=== PATIENT | female | born 1955 | race Caucasian/White ===

== ENCOUNTER 2022-03-06 13:29 | Emergency (ER) | payer OTHER ==
[~2022-03-06] VITALS: Ht 167.6 cm; Wt 113.5 kg
[2022-03-06] MEDS ORDERED: AZITHROMYCIN 500MG/ 250ML 250 ML IV ONE (14:15)
[2022-03-06] MEDS ORDERED: methylPREDNISolone SOD SUCC 125 MG/2 ML VL IV ONE (14:15)
[2022-03-06] MEDS ORDERED: REMDESIVIR PER PHARMACY 0 ML IV SCH (14:45)
[2022-03-06 14:57] LABS: Basophils # (auto) 0 10 ^3/uL (0-0.2); Basophils % (auto) 0.5 % (0.0-2.0); Eosinophils # (auto) 0.1 10 ^3/uL (0-0.8); Eosinophils % (auto) 1.3 % (0.0-7.0); Hematocrit 53.6 % (36.0-46.0); Hemoglobin 17.7 g/dL (12.2-16.2); Lymphocytes # (auto) 1.1 10 ^3/uL (0.4-5.4); Lymphocytes % (auto) 17.8 % (10.0-50.0); Mean Corpuscular Hemoglobin 29.9 pg (28.0-32.0); Mean Corpuscular Volume 90.5 fL (80.0-100.0); Monocytes # (auto) 0.3 10 ^3/uL (0-1.3); Monocytes % (auto) 4.9 % (0.0-12.0); Neutrophils # (auto) 4.7 10 ^3/uL (1.6-8.6); Neutrophils % (auto) 75.5 % (37.0-80.0); Nucleated Red Blood Cells % 0.2 %; Red Blood Cells 5.92 10^6/uL (4.0-5.20); Red Cell Distribution Width 14.6 % (11.8-14.3); White Blood Cell 6.2 10^3/uL (4.4-10.8)
[2022-03-06 15:12] LABS: Albumin 3.4 g/dL (3.4-5.0); Calcium 8.7 mg/dL (8.5-10.1); Potassium 4.2 mmol/L (3.5-5.1)
[2022-03-06 15:21] LABS: BUN/Creatinine Ratio 19.1; Bilirubin, Total 0.5 mg/dL (0.2-1.0); CRP High Sensitivity 1.22 mg/dL (< 0.3); Total Protein 7.2 g/dL (6.4-8.2)
[2022-03-06] MEDS ORDERED: IPRATROPIUM BROM 0.5 MG/2.5ML INH SOL HHN ONE (15:45)
[2022-03-06] MEDS ORDERED: ALBUTEROL SULF 2.5 MG/0.5ML(0.5%) NEB SOLN HHN ONE (15:45)
[2022-03-06] MEDS ORDERED: REMDESIVIR 200 MG in NS 210ml LOADING DOSE ADULT IV ONE (16:15)
[2022-03-06 18:00] VITALS: BP 133/54
[2022-03-07] MEDS ORDERED: REMDESIVIR 100mg 100 MG in SODIUM CHL 0.9% 230 ML IV SCH (15:00)
== END 2022-03-06 19:51 | disposition left against medical advice (07) ==
LOC: ER 13:29
DX: U07.1 COVID-19 (principal); J18.9 Pneumonia, unspecified organism; J96.00 Acute respiratory failure, unspecified whether with hypoxia or hypercapnia; I10 Essential (primary) hypertension; E11.9 Type 2 diabetes mellitus without complications; E78.5 Hyperlipidemia, unspecified; F17.210 Nicotine dependence, cigarettes, uncomplicated; R07.89 Other chest pain; Z90.710 Acquired absence of both cervix and uterus; Z90.89 Acquired absence of other organs
CPT/HCPCS: 36415; 71045; 80053; 83605; 85025; 85379; 86141; 87040; 87426; 94644; 96365; 96366; 96367; 96375; 99285; J0456; J2930; J7050; J7644

== ENCOUNTER 2024-07-11 13:33 | Inpatient (IN) | payer OTHER ==
[~2024-07-11] VITALS: Ht 168.9 cm; Wt 56.6 kg
--- NOTE | 2024-07-11 14:02 | ED.PDOC ---
SOB-HPI HPI Comments 68 y.o female with PMHx of HTN, hyperlipidemia, DM, thyroid disease, COPD and asthma, presents to the ED for a chief complaint of SOB associated with a productive cough, body aches, fever and diarrhea that started on 07/05/24 s/p getting back from a cruise trip. Patient report she was seen at [facility] 2 days ago for symptoms, was diagnosed with Influenza but eloped from the department before getting any other results or medication. Patient presents to the ED with a SPO2 of 74% in room air, was placed on 6 Liter via NC with 91% and increased further to 8 liters simple mask with high 90's saturation levels. Patient is not oxygen dependent at home, denies any chest pain, leg swelling, abdominal pain, nausea, or vomiting. Chief Complaint: Shortness of Breath Time Seen by MD: 13:45 Primary Care Provider: TAMMI Goldstein notes: Nurses Notes, Medications, Allergies Information Source: Patient Mode of Arrival: Wheelchair Severity: Moderate Timing: Weeks (1) Duration: Since onset Context: At Rest PE Risk Factors: Recent travel History of: Asthma, COPD Modifying Factors: Nothing Associated Signs and Symptoms: Fever, Wheeze, Cough If cough with SOB: Productive Past Medical History PAST MEDICAL HISTORY: Asthma, COPD, DM, High Lipids, HTN, Thyroid Surgical History: Hysterectomy, Tonsillectomy Surgical History (Other): left shoulder DIRECTOR OF ACCREDITATION History: Denies all DIRECTOR OF ACCREDITATION Hx Family History Family History: Reviewed,noncontributory to illness Social History Smoker: Cigarettes Alcohol: Rarely Drugs: Denies Drug Use Lives In: Home Constitutional: reports: fever; denies: chills, diaphoresis, fatigue, malaise, sweats, weakness, others EENTM: denies: blurred vision, double vision, ear bleeding, ear discharge, ear drainage, ear pain, ear ringing, eye pain, eye redness, hearing loss, mouth pain, mouth swelling, nasal discharge, nose bleeding, nose congestion, nose pain, photophobia, tearing, throat pain, throat swelling, voice changes, others Respiratory: reports: cough, SOB at rest, shortness of breath, SOB with excertion, wheezing; denies: hemoptysis, orthopnea, stridor, others Cardiovascular: denies: chest pain, dizzy spells, diaphoresis, Dyspnea on exertion, edema, irregular heart beat, left arm pain, lightheadedness, palpitations, PND, syncope, others Gastrointestinal: reports: diarrhea; denies: abdomen distended, abdominal pain, blood streaked bowels, constipated, dysphagia, difficulty swallowing, hematemesis, melena, nausea, poor appetite, poor fluid intake, rectal bleeding, rectal pain, vomiting, others Genitourinary: denies: abnormal vagina bleeding, burning, dyspareunia, dysuria, flank pain, frequency, hematuria, incontinence, pain, , vagina discharge, urgency, others Neurological: denies: dizziness, fainting, headache, left sided numbness, left sided weakness, numbness, paresthesia, pre-existing deficit, right sided numbness, right sided weakness, seizure, speech problems, tingling, tremors, weakness, others Musculoskeletal: reports: muscle pain; denies: back pain, gout, joint pain, joint swelling, muscle stiffness, neck pain, others Integumetry: denies: bruises, change in color, change in hair/nails, dryness, laceration, lesions, lumps, rash, wounds, others Allergic/Immunocompromised: denies: Difficulty Healing, Frequent Infections, Hives, Itching, others Hematologic/Lymphatic: denies: anemia, blood clots, easy bleeding, easy bruising, swollen glands, others Endocrine: denies: excessive hunger, excessive sweating, excessive thirst, excessive urination, flushing, intolerance to cold, intolerance to heat, unexplained weight gain, unexplained weight loss, others Psychiatric: denies: anxiety, bipolar disorder, depression, hopeless, panic disorder, schizophrenia, sleepless, suicidal, others All Other Systems: Reviewed and Negative Physical Exam General Appearance: Moderate Distress HEENT: Normal ENT Inspection, Pharynx Normal, TMs Normal Neck: Full Range of Motion, Non-Tender, Normal, Normal Inspection Respiratory: Chest Non-Tender, Lungs Clear, No Accessory Muscle Use, No Respiratory Distress, Normal Breath Sounds Cardiovascular: No Edema, No JVD, No Murmur, No Gallop, Normal Peripheral Pulses, Regular Rate/Rhythm Breast Exam: Deferred Gastrointestinal: No Organomegaly, Non Tender, No Pulsatile Mass, Normal Bowel Sounds, Soft Genitalia: Deferred Pelvic: Deferred Rectal: Deferred Extremities: No calf tenderness, Normal capillary refill, Pedal edema Musculoskeletal : Apperance: Normal Neurologic: Alert, brand advocate II-XII nml as Tested, No Motor Deficits, Normal Affect, Normal Mood, No Sensory Deficits Cerebellar Function: Normal Reflexes: Normal Skin: Dry, Normal Color, Warm Lymphatic: No Adenopathy Was a procedure done? Was a procedure done?: No Differential Dx Differential Diagnosis: Asthma, Bronchitis, COPD, Pneumonia, Pulmonary Embolism, Respiratory Distress, URI X-Ray, Labs, Meds, VS Vital Signs Date Time Temp Pulse Resp B/P (MAP) Pulse Ox O2 Delivery O2 Flow Rate FiO2 07/11/24 15:00 18 94 Nasal Cannula* 4 36 07/11/24 13:59 98.1 69 20 144/73 (96) 93 Lab Test 07/11/24 14:58 07/11/24 14:00 Range/Units Troponin I High Sensitivity 40 *H 38 *H </=34 ng/L White Blood Count 6.5 4.4-10.8 10^3/uL Red Blood Count 4.90 4.0-5.20 10^6/uL Hemoglobin 15.2 12.2-16.2 g/dL Hematocrit 44.5 36.0-46.0 % Mean Corpuscular Volume 90.7 80.0-100.0 fL Mean Corpuscular Hemoglobin 31.0 28.0-32.0 pg Mean Corpuscular Hemoglobin Concent 34.2 32.0-36.0 g/dL Red Cell Distribution Width 14.8 H 11.8-14.3 % Platelet Count 197 140-450 10^3/uL Mean Platelet Volume 7.3 6.9-10.8 fL Neutrophils (%) (Auto) 58.7 37.0-80.0 % Lymphocytes (%) (Auto) 27.7 10.0-50.0 % Monocytes (%) (Auto) 13.0 H 0.0-12.0 % Eosinophils (%) (Auto) 0.1 0.0-7.0 % Basophils (%) (Auto) 0.5 0.0-2.0 % Neutrophils # (Auto) 3.8 1.6-8.6 10 ^3/uL Lymphocytes # (Auto) 1.8 0.4-5.4 10 ^3/uL Monocytes # (Auto) 0.8 0-1.3 10 ^3/uL Eosinophils # (Auto) 0 0-0.8 10 ^3/uL Basophils # (Auto) 0 0-0.2 10 ^3/uL Nucleated Red Blood Cells 0.1 % Sodium Level 141 136-145 mmol/L Potassium Level 3.9 3.5-5.1 mmol/L Chloride Level 105 98-107 mmol/L Carbon Dioxide Level 32 H 20-31 mmol/L Anion Gap 4 L 5-15 Blood Urea Nitrogen 13 9-23 mg/dL Creatinine 0.48 L 0.550-1.02 mg/dL Glomerular Filtration Rate Calc 102 >90 mL/min BUN/Creatinine Ratio 27.1 H 10.0-20.0 Serum Glucose 111 H 74-106 mg/dL Lactic Acid Level 0.8 0.4-2.0 mmol/L Calcium Level 9.0 8.7-10.4 mg/dL B-Type Natriuretic Peptide 94.03 0-100 pg/mL Current Medications Medications (Trade) Dose Ordered Sig/Scot Route Start Time Stop Time Status Last Admin Ipratropium [place] (Atrovent Medneb) 1 mg ONCE ONCE [facility] [address] 07/11/24 14:00 07/11/24 14:01 DC 07/11/24 15:00 Albuterol (Ventolin Medneb) 20 mg ONCE ONCE [facility] [address] [address] 07/11/24 14:00 07/11/24 14:01 DC 07/11/24 14:59 The chest x-ray shows: IMPRESSION: 1. Cardiomegaly with probable pulmonary vascular congestion mild pulmonary edema. Alternative considerations include atypical infection or pneumonitis. HS:Y The patient was started on Lasix 40 mg IV push The patient was given a breathing treatment of albuterol and Atrovent The BNP is 94.03 The patient's troponin level went from 38-40 The CBC and chemistry panel is within normal limits At this time, the patient is being admitted to the hospitalist. We will be getting a Cardiology consult to address the patient's troponin level The patient understands and agrees with the management. Images Reviewed?: Images reviewed and evaluated by me Time of 1ST Reevaluation: 13:57 Reevaluation 1ST: Unchanged Patient Education/Counseling: Diagnosis, Treatment, Prognosis Family Education/Counseling: No Family Present Departure 1 Departure Time of Disposition: 16:04 Impression: Primary Impression: Acute on chronic diastolic heart failure Additional Impression: Elevated troponin Disposition: 09 ADMITTED INPATIENT Admit to: [facility] Condition: Fair Critical Care Note Critical Care Time?: Yes (45 min-critical care time only) Stability Stability form required: Yes Unstable for transfer: Telemetry monitoring (Telemetry monitoring required), ED Physician Assesment (Clinical assesment) I personally scribed for KIMBERLEY FITZGERALD MD ([email or web address]) on 07/11/24 at 14:01. Electr onically submitted by Radha Snyder ([facility]). KIMBERLEY FITZGERALD MD Jul 11, 2024 14:01
--- NOTE | 2024-07-11 14:20 | DVH ---
CHEST RADIOGRAPH Indication: sob Technique: Single frontal view of the chest was obtained Comparison: CHEST PORTABLE on DOS: 03/06/22, CXRP on DOS: 03/06/22 FINDINGS: Lines and Tubes: None Lungs: No focal consolidation. Diffuse bilateral interstitial prominence. Pleura: No effusion. No pneumothorax. Cardiomediastinal contours: Cardiomegaly Bones: No acute osseous abnormality. IMPRESSION: 1. Cardiomegaly with probable pulmonary vascular congestion mild pulmonary edema. Alternative conside rations include atypical infection or pneumonitis. HS:Y
[2024-07-11 14:25] LABS: Basophils # (auto) 0 10 ^3/uL (0-0.2); Basophils % (auto) 0.5 % (0.0-2.0); Eosinophils # (auto) 0 10 ^3/uL (0-0.8); Eosinophils % (auto) 0.1 % (0.0-7.0); Hematocrit 44.5 % (36.0-46.0); Hemoglobin 15.2 g/dL (12.2-16.2); Lymphocytes # (auto) 1.8 10 ^3/uL (0.4-5.4); Lymphocytes % (auto) 27.7 % (10.0-50.0); Mean Corpuscular Hgb Conc. 34.2 g/dL (32.0-36.0); Mean Corpuscular Volume 90.7 fL (80.0-100.0); Monocytes # (auto) 0.8 10 ^3/uL (0-1.3); Neutrophils # (auto) 3.8 10 ^3/uL (1.6-8.6); Neutrophils % (auto) 58.7 % (37.0-80.0); Nucleated Red Blood Cells % 0.1 %; Platelet Count (auto) 197 10^3/uL (140-450); Red Cell Distribution Width 14.8 % (11.8-14.3); White Blood Cell 6.5 10^3/uL (4.4-10.8)
[2024-07-11 14:37] LABS: Chloride 105 mmol/L (98-107); Potassium 3.9 mmol/L (3.5-5.1); Sodium 141 mmol/L (136-145)
[2024-07-11 14:38] LABS: Anion Gap 4 (5-15)
[2024-07-11 14:43] LABS: BUN/Creatinine Ratio 27.1 (10.0-20.0); Blood Urea Nitrogen 13 mg/dL (9-23)
[2024-07-11 14:51] LABS: Carbon Dioxide 32 mmol/L (20-31); Glucose 111 mg/dL (74-106)
[2024-07-11] MEDS: ALBUTEROL SULF 2.5 MG/0.5ML(0.5%) NEB SOLN HHN ONE (14:59)
[2024-07-11] MEDS: IPRATROPIUM BROM 0.5 MG/2.5ML INH SOL HHN ONE (15:00)
[2024-07-11 17:26] VITALS: RESP 28; O2SAT 93
[2024-07-11] MEDS: methylPREDNISolone SOD SUCC 125 MG/2 ML VL IV ONE (18:05)
[2024-07-11] MEDS: FUROSEMIDE 40 MG/4 ML VIAL IV ONE (18:05)
[2024-07-11 18:49] LABS: Urine Bacteria None Seen /hpf (None Seen)
[2024-07-11] MEDS ORDERED: NITROGLYCERIN 0.4 MG SL TAB SL PRN (19:00)
[2024-07-11] MEDS ORDERED: ONDANSETRON HCL 4 MG/2 ML VIAL IV PRN (19:00)
[2024-07-11] MEDS ORDERED: MORPHINE SULFATE INJ 2 MG/ml SYRG IV PRN (19:00)
[2024-07-11 19:05] LABS: Urine Blood Negative /uL (Negative); Urine Clarity Clear (Clear); Urine Color Light-Yellow (Yellow); Urine Hyaline Cast FEW /lpf (0 - 2); Urine Protein, UAD TRACE (Negative); Urine Specific Gravity 1.007 (1.001-1.035); Urine Squamous Epithelial Cell FEW /hpf (<5); Urine Urobilinogen Normal (Negative); Urine WBC 5 /hpf (0 - 5); Urine pH 6.5 (5.0-9.0)
[2024-07-11 19:30] VITALS: PULSE 68; RESP 18; O2SAT 97
[2024-07-11 20:13] LABS: COVID19 ANTIGEN SOFIA FIA NEGATIVE (NEGATIVE); Rapid Influenza A Negative (Negative); Rapid Influenza B Negative (Negative)
[2024-07-11] MEDS: NICOTINE 14 MG/24HR TOPICAL PATCH TD ONE (21:29)
[2024-07-11] MEDS: AZITHROMYCIN 500MG/ 250ML 250 ML IV ONE (21:58)
[2024-07-11] MEDS: GABAPENTIN 100 MG CAP PO SCH (23:15)
[2024-07-11] MEDS: methylPREDNISolone SOD SUCC 40 MG/ML VL IV SCH (23:15)
[2024-07-11] MEDS: MONTELUKAST SODIUM 10 MG TAB PO SCH (23:16)
[2024-07-11] MEDS: ATORVASTATIN 20 MG TAB PO SCH (23:16)
[2024-07-11] MEDS: ACETAMINOPHEN 325 MG TAB PO PRN (23:32)
[2024-07-12] VITALS (13 sets, daily range): BP systolic 117–161; BP diastolic 48–118; PULSE 60–77; RESP 14–20; TEMP 97.9–98.8; O2SAT 91–97
[2024-07-12] MEDS ORDERED: TIRZ5INJ SC (01:20)
[2024-07-12] MEDS ORDERED: [UNRECOGNIZED DRUG - CODE] SC (01:20)
[2024-07-12] MEDS ORDERED: TRAM50TA2 PO (01:20)
[2024-07-12] MEDS ORDERED: LEVO-848 PO (01:20)
[2024-07-12] MEDS ORDERED: FENO200C25 PO (01:20)
[2024-07-12] MEDS ORDERED: MONT-8 PO (01:20)
[2024-07-12] MEDS ORDERED: ROMO105I SC (01:20)
[2024-07-12] MEDS ORDERED: MET25T PO (01:20)
[2024-07-12] MEDS ORDERED: IBUP200T76 PO (01:20)
[2024-07-12] MEDS ORDERED: FURO40TA4 PO (01:20)
[2024-07-12] MEDS ORDERED: GAB100C PO (01:20)
[2024-07-12] MEDS ORDERED: LORA-622 PO (01:20)
[2024-07-12] MEDS ORDERED: SIMV80TA17 PO (01:20)
--- NOTE | 2024-07-12 04:19 | DVHHP2 ---
History of Present Illness Reason for Visit: Shortness for breath History of Present Illness 68-year-old female presents for evaluation of shortness for breath. Patient presents with a two day history of worsening shortness for breath with associated productive cough and intermittent chills. She also reports generalized weakness and body aches. Denies chest pain or palpitations. No other acute complaints reported. Past Medical History COPD, diabetes mellitus, dyslipidemia hypertension, CHF, asthma Past Surgical History Tonsillectomy, hysterectomy and left shoulder surgery Family History Noncontributory Smoke: <1 pack per day ALCOHOL: occassional Drugs: None Lives: with Family Review of Systems Review of Systems Review of systems are currently negative otherwise addressed HPI. Allergies: Coded Allergies: No Known Drug Allergy (Verified Allergy, Unknown, 03/06/22) Medications Current Medications Medications Dose Ordered Sig/Scot Route Start Time Stop Time Status Last Admin Dose Admin Aspirin 81 mg DAILY PO 07/12/24 10:00 Atorvastatin Calcium 10 mg HS PO 07/11/24 22:00 07/11/24 23:16 10 MG Metoprolol Succinate 25 mg DAILY PO 07/12/24 10:00 Gabapentin 100 mg BID PO 07/11/24 22:00 07/11/24 23:15 100 MG Azithromycin 250 ml @ 125 mls/hr DAILY IV 07/12/24 10:00 Albuterol 2.5 mg Q6HPRN PRN NEB 07/11/24 19:00 Ipratropium [place] 0.5 mg Q6HPRN PRN NEB 07/11/24 19:00 Montelukast Sodium 10 mg HS PO 07/11/24 22:00 07/11/24 23:16 10 MG Methylprednisolone Sodium Succinate 40 mg BID IV 07/11/24 22:00 07/11/24 23:15 40 MG Temazepam 15 mg QHSP PRN PO 07/11/24 19:00 Ondansetron HCl 4 mg Q4HP PRN IV 07/11/24 19:00 Enoxaparin Sodium 40 mg DAILY SC 07/12/24 10:00 Acetaminophen 650 mg Q6HP PRN PO 07/11/24 19:00 07/11/24 23:32 650 MG Nitroglycerin 0.4 mg Q5MINP PRN SL 07/11/24 19:00 Morphine Sulfate 2 mg Q30M PRN IV 07/11/24 19:00 Nicotine 1 patch DAILY@2100 TD 07/12/24 21:00 Exam Vital Signs Vital Signs Date Time Temp Pulse Resp B/P (MAP) Pulse Ox O2 Delivery O2 Flow Rate FiO2 07/12/24 01:36 98.1 77 14 154/75 93 6.0 44 98.1 07/12/24 00:32 Nasal Cannula* Exam Gen: 68-year-old female in mild distress Skin: Warm, dry, normal color and texture, no rash. HEENT: Normocephalic atraumatic, mucous membranes moist and pink. Neck: Cervical and supraclavicular nodes normal without enlargement, trachea is midline, thyroid gland is normal without masses. Pulmonary: Clear to auscultation and percussion bilaterally. Cardiac: Regular rate and rhythm. No murmur Abdomen: Soft, nontender, nondistended, bowel sounds present all 4 quadrants, no guarding, no rigidity, no organomegaly. Extremities: No cyanosis, clubbing, no edema Neuro: Cranial nerves II through XII grossly intact, normal affect and speech, no focal motor deficits. Labs/Xrays ORDERING PHYSICIAN: KIMBERLEY FITZGERALD MD PROCEDURE(s): CXRP - CHEST PORTABLE REASON: sob ORDER NUMBER(s): [id number], ACCESSION NUMBER(s): [id number] CHEST RADIOGRAPH Indication: sob Technique: Single frontal view of the chest was obtained Comparison: CHEST PORTABLE on DOS: 03/06/22, CXRP on DOS: 03/06/22 FINDINGS: Lines and Tubes: None Lungs: No focal consolidation. Diffuse bilateral interstitial prominence. Pleura: No effusion. No pneumothorax. Cardiomediastinal contours: Cardiomegaly Bones: No acute osseous abnormality. IMPRESSION: 1. Cardiomegaly with probable pulmonary vascular congestion mild pulmonary edema. Alternative considerations include atypical infection or pneumonitis. HS:Y Labs Test 07/11/24 19:36 07/11/24 18:34 07/11/24 17:00 07/11/24 14:00 Range/Units Influenza Type A Antigen Negative Negative Influenza Type B Antigen Negative Negative SARS-CoV-2 Antigen (Rapid) Negative NEGATIVE Urine Color Light-yellow Yellow Urine Clarity Clear Clear Urine pH 6.5 5.0-9.0 Urine Specific [place] 1.007 1.001-1.035 Urine Protein Trace H Negative Urine Ketones Negative Negative Urine Blood Negative Negative /uL Urine Nitrite Negative Negative Urine Bilirubin Negative Negative Urine Urobilinogen Normal Negative mg/dL Urine Leukocyte Esterase 1+ Negative /uL Urine RBC 2 0 - 4 /hpf Urine WBC 5 0 - 5 /hpf Urine Squamous Epithelial Cells Few <5 /hpf Urine Bacteria None seen None Seen /hpf Urine Hyaline Casts Few 0 - 2 /lpf Urine Glucose Normal Normal mg/dL Troponin I High Sensitivity 34 </=34 ng/L White Blood Count 6.5 4.4-10.8 10^3/uL Red Blood Count 4.90 4.0-5.20 10^6/uL Hemoglobin 15.2 12.2-16.2 g/dL Hematocrit 44.5 36.0-46.0 % Mean Corpuscular Volume 90.7 80.0-100.0 fL Mean Corpuscular Hemoglobin 31.0 28.0-32.0 pg Mean Corpuscular Hemoglobin Concent 34.2 32.0-36.0 g/dL Red Cell Distribution Width 14.8 H 11.8-14.3 % Platelet Count 197 140-450 10^3/uL Mean Platelet Volume 7.3 6.9-10.8 fL Neutrophils (%) (Auto) 58.7 37.0-80.0 % Lymphocytes (%) (Auto) 27.7 10.0-50.0 % Monocytes (%) (Auto) 13.0 H 0.0-12.0 % Eosinophils (%) (Auto) 0.1 0.0-7.0 % Basophils (%) (Auto) 0.5 0.0-2.0 % Neutrophils # (Auto) 3.8 1.6-8.6 10 ^3/uL Lymphocytes # (Auto) 1.8 0.4-5.4 10 ^3/uL Monocytes # (Auto) 0.8 0-1.3 10 ^3/uL Eosinophils # (Auto) 0 0-0.8 10 ^3/uL Basophils # (Auto) 0 0-0.2 10 ^3/uL Nucleated Red Blood Cells 0.1 % Sodium Level 141 136-145 mmol/L Potassium Level 3.9 3.5-5.1 mmol/L Chloride Level 105 98-107 mmol/L Carbon Dioxide Level 32 H 20-31 mmol/L Anion Gap 4 L 5-15 Blood Urea Nitrogen 13 9-23 mg/dL Creatinine 0.48 L 0.550-1.02 mg/dL Glomerular Filtration Rate Calc 102 >90 mL/min BUN/Creatinine Ratio 27.1 H 10.0-20.0 Serum Glucose 111 H 74-106 mg/dL Lactic Acid Level 0.8 0.4-2.0 mmol/L Calcium Level 9.0 8.7-10.4 mg/dL B-Type Natriuretic Peptide 94.03 0-100 pg/mL Assessment/Plan Assessment/Plan Assessment Acute on chronic respiratory failure Congestive heart failure COPD with exacerbation Questionable pneumonitis UTI Plan Admit the patient to telemetry to the hospitalist Resume home medications Azithromycin Continue treatment per orders. Plan discussed with: Patient My Orders Orders - MALLIKA PACKER Procedure Category Date Status Time Aspirin Tablet PHA 07/12/24 In Process 10:00 Atorvastatin (Lipitor) PHA 07/11/24 In Process 22:00 Metoprolol Xl PHA 07/12/24 In Process Succinate (Toprol Xl) 10:00 Gabapentin Capsule PHA 07/11/24 In Process (Neurontin Capsule) 22:00 * Cardiology Consult CONS 07/11/24 Transmitted 18:53 Azithromycin 500mg/ PHA 07/12/24 In Process 250ml (Zithromax 50 10:00 Albuterol Medneb PHA 07/11/24 In Process (Ventolin Medneb) 19:00 Ipratropium Medneb PHA 07/11/24 In Process (Atrovent Medneb) 19:00 Montelukast Tablet PHA 07/11/24 In Process (Singulair Tablet) 22:00 Basic Metabolic Panel LAB 07/12/24 Logged 04:00 Methylprednisolone PHA 07/11/24 In Process Sod Succ (Solu Medrol 22:00 Admit ADMIT 07/11/24 Transmitted 18:53 Temazepam (Restoril) PHA 07/11/24 In Process 19:00 Ondansetron Hcl PHA 07/11/24 In Process (Zofran) 19:00 Enoxaparin Sodium PHA 07/12/24 In Process (Lovenox) 10:00 Complete Blood Count LAB 07/12/24 Logged 04:00 Cardiac DIET 07/12/24 Transmitted Diet-2gna,Lofat,Lochol Breakfast Echo 2d Mode Cardiac US 07/11/24 Logged DOP 18:53 Condition: Fair CHRIS 07/11/24 In Process 18:53 Acetaminophen Tablet PHA 07/11/24 In Process (Tylenol Tablet) 19:00 Bedrest With Bathroom CHRIS 07/11/24 In Process Privileg 18:53 Nitroglycerin PHA 07/11/24 In Process Sublingual (Ntrostat 19:00 Morphine Sulfate PHA 07/11/24 In Process Injection 19:00 Stat Ekg For Chest [facility] 07/11/24 In Process Pain 18:53 Notify Md Of Changes [facility] 07/11/24 In Process From Base 18:53 Construction Inspector For [facility] 07/11/24 In Process 24 Hours 18:53 Emergency Dysrhythmia [facility] 07/11/24 In Process Protocol 18:53 Rhythm Strips Once [facility] 07/11/24 In Process Every Shift 18:53 Oxygen By Nasal RT 07/11/24 Transmitted Cannula 18:53 Nicotine 14mg/24hr PHA 07/12/24 In Process (Nicoderm 14mg/24hr) 21:00 Date of Service: Jul 11, 2024 Billing Provider: MALLIKA PACKER Common Visit Codes: [id number] INP/OBS CARE (HIGH) MALLIKA PACKER Jul 12, 2024 04:19
[2024-07-12 07:31] LABS: Basophils # (auto) 0 10 ^3/uL (0-0.2); Basophils % (auto) 0.4 % (0.0-2.0); Eosinophils # (auto) 0 10 ^3/uL (0-0.8); Hematocrit 43.8 % (36.0-46.0); Hemoglobin 14.9 g/dL (12.2-16.2); Lymphocytes # (auto) 0.9 10 ^3/uL (0.4-5.4); Lymphocytes % (auto) 28.6 % (10.0-50.0); Mean Corpuscular Hgb Conc. 34.1 g/dL (32.0-36.0); Mean Corpuscular Volume 90.9 fL (80.0-100.0); Monocytes # (auto) 0.3 10 ^3/uL (0-1.3); Monocytes % (auto) 9.2 % (0.0-12.0); Neutrophils % (auto) 61.8 % (37.0-80.0); Nucleated Red Blood Cells % 0.2 %; Platelet Count (auto) 203 10^3/uL (140-450); Red Blood Cells 4.82 10^6/uL (4.0-5.20); Red Cell Distribution Width 14.7 % (11.8-14.3); White Blood Cell 3.3 10^3/uL (4.4-10.8)
[2024-07-12 07:58] LABS: Chloride 103 mmol/L (98-107); Potassium 4.2 mmol/L (3.5-5.1); Sodium 143 mmol/L (136-145)
[2024-07-12 07:59] LABS: Anion Gap 7 (5-15); Calcium 8.8 mg/dL (8.7-10.4)
[2024-07-12 08:04] LABS: BUN/Creatinine Ratio 23.5 (10.0-20.0); Blood Urea Nitrogen 12 mg/dL (9-23)
[2024-07-12 08:07] LABS: Carbon Dioxide 33 mmol/L (20-31); Glucose 145 mg/dL (74-106)
--- NOTE | 2024-07-12 08:36 | DVHPN2 ---
Subjective 68-year-old female with a history of CHF, dyslipidemia, hypertension, type 2 diabetes, COPD, she does not use home O2, she developed flu symptoms for a week now and then when she came here yesterday her oxygen saturation was very low to the 70s so she came here She has been coughing and having congestion and sinus pain and fever and chills Changes from previous H/P or p: Changes Objective Vitals Vital Signs Date Time Temp Pulse Resp B/P (MAP) Pulse Ox O2 Delivery O2 Flow Rate FiO2 07/12/24 05:00 98.6 72 18 157/79 (105) 95 98.6 07/12/24 01:36 6.0 44 07/12/24 00:32 Nasal Cannula* Intake/Output Intake and Output 07/12/24 07:00 Intake Total 850 ml Output Total 2 ml Balance 848 ml Intake Oral 725 ml IV Total 125 ml Output Urine Total 2 ml General Appearance: Alert, Oriented X3, Cooperative, mild distress Lungs: Other (Bilateral rhonchi at the base) Cardiovascular: Regular rate, Normal S1, Normal S2 Abdomen: Normal bowel sounds, Soft, No tenderness Extremities: Other (1+ edema bilaterally in the lower extremities) Medications Current Medications Medications Dose Ordered Sig/Scot Route Start Time Stop Time Status Last Admin Dose Admin Aspirin 81 mg DAILY PO 07/12/24 10:00 Atorvastatin Calcium 10 mg HS PO 07/11/24 22:00 07/11/24 23:16 10 MG Metoprolol Succinate 25 mg DAILY PO 07/12/24 10:00 Gabapentin 100 mg BID PO 07/11/24 22:00 07/11/24 23:15 100 MG Azithromycin 250 ml @ 125 mls/hr DAILY IV 07/12/24 10:00 Albuterol 2.5 mg Q6HPRN PRN NEB 07/11/24 19:00 Ipratropium [place] 0.5 mg Q6HPRN PRN NEB 07/11/24 19:00 Montelukast Sodium 10 mg HS PO 07/11/24 22:00 07/11/24 23:16 10 MG Methylprednisolone Sodium Succinate 40 mg BID IV 07/11/24 22:00 07/11/24 23:15 40 MG Temazepam 15 mg QHSP PRN PO 07/11/24 19:00 Ondansetron HCl 4 mg Q4HP PRN IV 07/11/24 19:00 Enoxaparin Sodium 40 mg DAILY SC 07/12/24 10:00 Acetaminophen 650 mg Q6HP PRN PO 07/11/24 19:00 07/11/24 23:32 650 MG Nitroglycerin 0.4 mg Q5MINP PRN SL 07/11/24 19:00 Morphine Sulfate 2 mg Q30M PRN IV 07/11/24 19:00 Nicotine 1 patch DAILY@2100 TD 07/12/24 21:00 Laboratory Results Laboratory Tests 07/12/24 05:59 Chemistry Test 07/11/24 14:00 07/12/24 05:59 Calcium Level 9.0 mg/dL (8.7-10.4) 8.8 mg/dL (8.7-10.4) Cardiac Markers Test 07/11/24 14:00 B-Type Natriuretic Peptide 94.03 pg/mL (0-100) Urinalysis Test 07/11/24 18:34 Urine Color Light-yellow (Yellow) Urine Clarity Clear (Clear) Urine pH 6.5 (5.0-9.0) Urine Specific [place] 1.007 (1.001-1.035) Urine Protein Trace (Negative) H Urine Ketones Negative (Negative) Urine Blood Negative /uL (Negative) Urine Nitrite Negative (Negative) Urine Bilirubin Negative (Negative) Urine Urobilinogen Normal mg/dL (Negative) Urine Leukocyte Esterase 1+ /uL (Negative) Urine RBC 2 /hpf (0 - 4) Urine WBC 5 /hpf (0 - 5) Urine Squamous Epithelial Cells Few /hpf (<5) Urine Bacteria None seen /hpf (None Seen) Urine Hyaline Casts Few /lpf (0 - 2) Urine Glucose Normal mg/dL (Normal) Assessment/Plan Assessment/Plan Acute hypoxic respiratory failure Congestive heart failure exacerbation, acute on chronic, systolic versus diastolic Acute upper respiratory infection Cardiomegaly Pulmonary edema Rule out pneumonia Obesity COPD Hypertension Hypoxemia Mixed hyperlipidemia Type 2 diabetes Plan Oxygen as needed Med neb treatments IV antibiotics with Zithromax Lasix IV IV steroids Echocardiogram Cardiology consult Monitor closely Full code Plan discussed with: Patient Date of Service: Jul 12, 2024 Billing Provider: ALEXANDRU AGUAYO MD Common Visit Codes: NOT BILLABLE ALEXANDRU AGUAYO MD Jul 12, 2024 08:36
[2024-07-12] MEDS ORDERED: DEXTROSE (50%) 50ML SYRG IV PRN (08:45)
[2024-07-12] MEDS: AZITHROMYCIN 500MG/ 250ML 250 ML IV SCH (10:00)
[2024-07-12] MEDS: METOPROLOL SUCCINATE XL 50 MG TAB PO SCH (10:14)
[2024-07-12] MEDS: ASPirin 81 mg TAB PO SCH (10:15)
[2024-07-12] MEDS: LOSARTAN POTASSIUM 50 MG TAB PO SCH (10:15)
[2024-07-12] MEDS: LEVOTHYROXINE SODIUM 50 MCG TAB PO ONE (10:15)
[2024-07-12] MEDS: FUROSEMIDE 40 MG/4 ML VIAL IV ONE (10:16)
[2024-07-12] MEDS: ENOXAPARIN SOD 40 MG/0.4 ML SYRINGE SC SCH (10:17)
[2024-07-12] MEDS: InsuLIN REG 1unit/0.01ml Soln (100units/ml) SC SCH ×2 (11:30→21:11)
[2024-07-12 11:52] LABS: Magnesium 1.8 mg/dL (1.6-2.6)
[2024-07-12] MEDS: ACCU-CHEK COMFORT CURVE STRIP VI SCH (12:18)
--- NOTE | 2024-07-12 12:24 | DVHINCON2 ---
Date Seen: Jul 12, 2024 Referring Physician JANET Holder Reason for Consultation CHF History of Present Illness This is a 68-year-old female patient who presents to the emergency room with chief complaint of shortness of breath for six days. The patient reports flu- like symptoms since July 05, 2024 including cough, body aches, and diarrhea. The patient reports that yesterday she checked her oxygen at home via pulse oximetry and noticed that she was at 70% on room air. This prompted her to come to the emergency room for further evaluation. Initial twelve lead electrocardiogram reveals normal sinus rhythm without any ST segment changes. Initial troponin level of 38ng/L with flat trend thereafter. Initial BNP level of 94.03pg/mL. Significant past medical history includes congestive heart failure, hypertension, dyslipidemia, type 2 diabetes mellitus, thyroid disease, COPD, asthma, tobacco use, and morbid obesity. The patient reports following up with improvement advisor in [place], [place]. Past Medical History Past medical history reviewed. No other significant than mentioned above. Past Surgical History Left breast lumpectomy Hysterectomy Tonsillectomy Left shoulder repair Family History: FH: brain tumor G8 BROTHER FH: cancer G8 MOTHER, G8 SISTER FH: dementia G8 FATHER, FH: melanoma G8 BROTHER G8 BROTHER Family History Family history reviewed. Social History Patient has a 55 pack-year history, reports smoking one pack per day Patient denies any illicit drug use Patient denies any alcohol use Allergies: Coded Allergies: No Known Drug Allergy (Verified Allergy, Unknown, 03/06/22) Home Meds Reported Medications Loratadine (Claritin) 10 Mg Tab, 1 TAB PO DAILY, TAB 07/12/24 Ibuprofen (Advil) 200 Mg Tab, 2 TAB PO HS, TAB 07/12/24 Tramadol Hcl (Tramadol Hcl) 50 Mg Tab, 1 TAB PO TID PRN for PAIN 07/12/24 Montelukast Sodium (MONTELUKAST SODIUM) 10 Mg Tab, 1 TAB PO DAILY 07/12/24 Furosemide (Furosemide) 40 Mg Tab, 1 TAB PO DAILY 07/12/24 Simvastatin (Simvastatin) 80 Mg Tab, 0.5 TAB PO DAILY, TAB 07/12/24 Metoprolol Tartrate (Lopressor) 25 Mg Tb, 0.5 TAB PO BID 07/12/24 Fenofibrate (Fenofibrate Micronized) 200 Mg Cap, 1 CAP PO DAILY 07/12/24 Levothyroxine Sodium (SYNTHROID TABLET) 50 Mcg Tb, 50 MCG PO DAILY, TAB 07/12/24 Gabapentin (Gabapentin) 100 Mg Cap, 400 MG PO DAILY 07/12/24 Tirzepatide (Mounjaro) 5 Mg/0.5 Ml Inj, 2.5 MG SC QWEEKLY 07/12/24 Mepolizumab (Nucala) 100 Mg/Ml Inj, SC 07/12/24 Romosozumab-Aqqg (Evenity) 105 Mg/1.17 Ml Inj, SC 07/12/24 Home Meds Home medications reviewed. Current Medications Current Medications Medications (Trade) Dose Ordered Sig/Scot Route PRN Reason Start Time Stop Time Status Last Admin Aspirin 81 mg DAILY PO 07/12/24 10:00 07/12/24 10:15 Atorvastatin Calcium (Lipitor) 10 mg HS PO 07/11/24 22:00 07/11/24 23:16 Metoprolol Succinate (Toprol Xl) 25 mg DAILY PO 07/12/24 10:00 07/12/24 10:14 Gabapentin (Neurontin Capsule) 100 mg BID PO 07/11/24 22:00 07/12/24 10:35 DC 07/11/24 23:15 Azithromycin 250 ml @ 125 mls/hr DAILY IV 07/12/24 10:00 07/12/24 12:19 DC Albuterol (Ventolin Medneb) 2.5 mg Q6HPRN PRN NEB SHORTNESS OF BREATH 07/11/24 19:00 Ipratropium [place] (Atrovent Medneb) 0.5 mg Q6HPRN PRN NEB SHORTNESS OF BREATH 07/11/24 19:00 Montelukast Sodium (Singulair Tablet) 10 mg HS PO 07/11/24 22:00 07/11/24 23:16 Methylprednisolone Sodium Succinate (Solu Medrol) 40 mg BID IV 07/11/24 22:00 07/12/24 10:16 Temazepam (Restoril) 15 mg QHSP PRN PO FOR INSOMNIA 07/11/24 19:00 Ondansetron HCl (Zofran) 4 mg Q4HP PRN IV NAUSEA / VOMITING 07/11/24 19:00 Enoxaparin Sodium (Lovenox) 40 mg DAILY SC 07/12/24 10:00 07/12/24 10:17 Acetaminophen (Tylenol Tablet) 650 mg Q6HP PRN PO PAIN SCALE 1-3 OR TEMP>100.4 07/11/24 19:00 07/11/24 23:32 Nitroglycerin (Ntrostat Sublingual) 0.4 mg Q5MINP PRN SL FOR CHEST PAIN 07/11/24 19:00 Morphine Sulfate 2 mg Q30M PRN IV FOR CHEST PAIN 07/11/24 19:00 Nicotine (Nicoderm 14MG/ 24HR) 1 patch DAILY@2100 TD 07/12/24 21:00 Furosemide (Lasix Injection) 40 mg BIDD IV 07/12/24 18:00 Diagnostic Test (Pha) (Accu-Chek Comfort Curve T) 1 strip ACHS 07/12/24 11:30 07/12/24 12:18 Insulin Human Regular (InsuLIN R) HS SC 07/12/24 22:00 Insulin Human Regular (InsuLIN R) AC SC 07/12/24 11:30 Dextrose 50 ml UD PRN IV Blood Sugar LESS THAN 60 07/12/24 08:45 Levothyroxine Sodium (Synthroid Tablet) 50 mcg QAM@0600 PO 07/13/24 06:00 Losartan Potassium (Cozaar Tablet) 50 mg DAILY PO 07/12/24 10:00 07/12/24 10:15 Hydralazine HCl (Apresoline Injection) 10 mg Q6HR IV 07/12/24 12:00 Gabapentin (Neurontin Capsule) 400 mg DAILY PO 07/12/24 22:00 UNV Doxycycline Monohydrate (Vibramycin Tablet) 100 mg Q12HR PO 07/12/24 22:00 UNV Review of Systems Constitutional: No symptom reported Ears, Nose, & Throat: No symptom reported Eyes: No symptom reported Neurological: No symptoms reported Pulmonary/Respiratory: Shortness of breath Cardiovascular: No symptom reported Gastrointestinal: No symptom reported Genitourinary: No symptom reported Musculoskeletal: No symptom reported Skin: No symptom reported Psychiatric: No symptom reported Endocrine: No symptom reported Hematologic/Lymphatic: No symptom reported Vital Signs Vital Signs Date Time Temp Pulse Resp B/P (MAP) Pulse Ox O2 Delivery O2 Flow Rate FiO2 07/12/24 10:16 149/74 07/12/24 10:14 66 07/12/24 09:00 98.4 16 94 98.4 07/12/24 08:16 Nasal Cannula 6.0 07/12/24 08:16 44 Physical Exam General Appearance: Cooperative. Morbidly obese Pulmonary/Respiratory: Coarse throughout Cardiovascular/Chest: Regular rate and rhythm. Peripheral Pulses: 2+ Radial (R). 2+ Radial (L). 1+ Pedal (R). 1+ Pedal (L) Abdominal Exam: Normal bowel sounds. Ankle Exam: Negative ankle edema Lower extremities: Negative lower extremity edema Neuro/Mental Status: A/OX4, coherent. Thoughts/Psych: Normal thought pattern. Appropriate mood and affect. Good judgment and insight. Appearance: No acute distress. Skin Exam: Normal inspection. Normal color. Warm and dry. Labs/Diagnostic Data Labs Test 07/12/24 05:59 07/11/24 19:36 07/11/24 18:34 07/11/24 17:00 Range/Units White Blood Count 3.3 #L 4.4-10.8 10^3/uL Red Blood Count 4.82 4.0-5.20 10^6/uL Hemoglobin 14.9 12.2-16.2 g/dL Hematocrit 43.8 36.0-46.0 % Mean Corpuscular Volume 90.9 80.0-100.0 fL Mean Corpuscular Hemoglobin 31.0 28.0-32.0 pg Mean Corpuscular Hemoglobin Concent 34.1 32.0-36.0 g/dL Red Cell Distribution Width 14.7 H 11.8-14.3 % Platelet Count 203 140-450 10^3/uL Mean Platelet Volume 7.8 6.9-10.8 fL Neutrophils (%) (Auto) 61.8 37.0-80.0 % Lymphocytes (%) (Auto) 28.6 10.0-50.0 % Monocytes (%) (Auto) 9.2 0.0-12.0 % Eosinophils (%) (Auto) 0.0 0.0-7.0 % Basophils (%) (Auto) 0.4 0.0-2.0 % Neutrophils # (Auto) 2.0 1.6-8.6 10 ^3/uL Lymphocytes # (Auto) 0.9 0.4-5.4 10 ^3/uL Monocytes # (Auto) 0.3 0-1.3 10 ^3/uL Eosinophils # (Auto) 0 0-0.8 10 ^3/uL Basophils # (Auto) 0 0-0.2 10 ^3/uL Nucleated Red Blood Cells 0.2 % Sodium Level 143 136-145 mmol/L Potassium Level 4.2 3.5-5.1 mmol/L Chloride Level 103 98-107 mmol/L Carbon Dioxide Level 33 H 20-31 mmol/L Anion Gap 7 5-15 Blood Urea Nitrogen 12 9-23 mg/dL Creatinine 0.51 L 0.550-1.02 mg/dL Glomerular Filtration Rate Calc 101 >90 mL/min BUN/Creatinine Ratio 23.5 H 10.0-20.0 Serum Glucose 145 H 74-106 mg/dL Hemoglobin A1c 6.1 H <5.7 % A1C Calcium Level 8.8 8.7-10.4 mg/dL Magnesium Level 1.8 1.6-2.6 mg/dL Triglycerides Level 75 < 150 mg/dL Cholesterol Level 109 < 200 mg/dL LDL Cholesterol 57 < 100 mg/dL HDL Cholesterol 45 40-59 mg/dL Thyroid Stimulating Hormone (TSH) 0.31 L 0.55-4.78 uIU/mL Influenza Type A Antigen Negative Negative Influenza Type B Antigen Negative Negative SARS-CoV-2 Antigen (Rapid) Negative NEGATIVE Urine Color Light-yellow Yellow Urine Clarity Clear Clear Urine pH 6.5 5.0-9.0 Urine Specific [place] 1.007 1.001-1.035 Urine Protein Trace H Negative Urine Ketones Negative Negative Urine Blood Negative Negative /uL Urine Nitrite Negative Negative Urine Bilirubin Negative Negative Urine Urobilinogen Normal Negative mg/dL Urine Leukocyte Esterase 1+ Negative /uL Urine RBC 2 0 - 4 /hpf Urine WBC 5 0 - 5 /hpf Urine Squamous Epithelial Cells Few <5 /hpf Urine Bacteria None seen None Seen /hpf Urine Hyaline Casts Few 0 - 2 /lpf Urine Glucose Normal Normal mg/dL Troponin I High Sensitivity 34 </=34 ng/L Test 07/11/24 14:00 Range/Units Lactic Acid Level 0.8 0.4-2.0 mmol/L B-Type Natriuretic Peptide 94.03 0-100 pg/mL Assessment Unspecified congestive heart failure, NYHA class III Acute hypoxic respiratory failure NSTEMI type II secondary to above Hypertension Dyslipidemia Type 2 diabetes mellitus COPD Thyroid disease Morbidly obese Plan/Recommendation We will continue with the following plan/recommendations (Dr. Browne): * Echocardiogram to evaluate cardiac function * BP control * Cardiac surveillance: Notify of any ECG changes * Lipid-lowering agent Case discussed with . Thank you for allowing us to care for this patient. Please call with any questions or concerns. Critical care time spent: 38 minutes This medical document was created using an electronic medical record system with voice recognition software and computerized dictation system. Although this document has been carefully reviewed, there might still be some phonetic and typographical errors. Occasional wrong-word or ``sound-alike substitutions may have occurred due to the inherent limitations of voice recognition software. These areas are purely typographical due to imperfections of the software programs and do not reflect any compromise in the patient's medical care. Please read the chart carefully and recognize, using context, where these substitutions have occurred. Plan discussed with: Patient NYHA Physical activity limitations: Class3(Marked) ordinary (activity causes symtoms) Date of Service: Jul 12, 2024 Billing Provider: KAROLYN METZGER Cardiology Common Codes: 68287-YMYNNOB INP/OBS CARE (High) Cardiology Consultation Codes: 08153-QUDIVPZLQ CONSULT <45MIN KAROLYN METZGER Jul 12, 2024 12:24
[2024-07-12] MEDS: IPRATROPIUM BROM 0.5 MG/2.5ML INH SOL NEB PRN (12:26)
[2024-07-12] MEDS: ALBUTEROL SULF 2.5 MG/0.5ML(0.5%) NEB SOLN NEB PRN (12:26)
[2024-07-12] MEDS: hydrALAZINE HCL 20 MG/ML VL IV SCH (14:04)
--- NOTE | 2024-07-12 14:47 | ECG ---
[facility] Test Date: 2024-07-12 Test Time: 11:28:56 Pat Name: JERI GALINDO Department: Respiratoy Room: 0212 Gender: F Ward Helper: VERNA : 1955 Requested By: KAROLYN METZGER Order Number: [id number] Reading MD: Ken Apodaca Measurements Intervals [place] Rate: 60 P: 46 MO: 186 QRS: 13 QRSD: 96 T: 49 QT: 486 QTc: 486 Interpretive Statements Sinus rhythm Borderline prolonged QT interval Baseline wander in lead(s) V6 Electronically Signed On 07-13-2024 12:27:51 PST by Ken Apodaca Please click the below link to view image of tracing.
[2024-07-12 15:06] LABS: Free T3 2.4 pg/mL (2.3-4.2); Free T4 (Free Thyroxine) 1.28 ng/dL (0.89-1.76)
--- NOTE | 2024-07-12 16:49 | DVHSR ---
APPROVED REPORT EXAM: Two-dimensional and M-mode echocardiogram with Doppler and color Doppler. Blood Pressure: 157/79 mmHg INDICATION EF RISK FACTORS Height: 5'6, Weight: 220 DIMENSIONS LVDd6.1 (3.8-5.7cm)LA (2D)5.1 (1.9-4.0cm)Aortic Root3.0 (2.0-3.7cm) LVDs3.8 (2.5-4.0cm)LA (MM) (1.9-4.0cm)Aortic Cusp Exc1.6 (1.5-2.0cm) EF (%) 55.0 (55-70%)Rt. Atrium3.8 (1.9-4.0cm)Asc. Aorta3.0 cm IVSd1.0 (0.7-1.1cm)RV (D) (1.8-2.4cm) PWd0.9 (0.7-1.1cm) Mitral Valve MitralMitral Stenosis E wave0.80m/sMV Mean GR.mmHg A wave1.03m/sMV Peak GR.94mmHg E/A ratio0.82D MVAcm2 DECEL [id number] 1/2 Tim[place] Aortic Valve Aortic ValveAortic Stenosis V11.35m/Susana Mean GR.6mmHg V21.81m/Susana Peak GR.13mmHg LVOT Diameter2.4 (1.8-2.4cm)Doppler AVA3.37cm2 Pulmonic Valve V21.06m/s Tricuspid Valve [id number] Other Information Quality : Technically difficult studyRhythm : Technically limited study due to patient position.body habitus. Conclusion very limited study lvef 50% by visual estimate (cannot rule out wall motion abnomalities) grade 1 diastolic dysfunction LV cavity is dilated Mild RV enlarged mild normal function left atrium enlarged
[2024-07-12] MEDS: FUROSEMIDE 40 MG/4 ML VIAL IV SCH (17:46)
[2024-07-12] MEDS: DOXYCYCLINE 100 MG TAB/CAP PO SCH (21:02)
[2024-07-12] MEDS: NICOTINE 14 MG/24HR TOPICAL PATCH TD SCH (21:02)
[2024-07-12] MEDS: GABAPENTIN 100 MG CAP PO SCH (21:05)
--- NOTE | 2024-07-12 23:12 | DVHINCON2 ---
Date of service: Jul 12, 2024 Referring Physician Prateek Martines MD Reason for Consultation Acute on chronic hypoxic respiratory failure and COPD exacerbation History of Present Illness A 68-year-old woman who presented to ED on 07/11/24 for evaluation of shortness of breath. Patient presented with a two-day history of worsening shortness of breath with associated productive cough and intermittent chills. She also reported generalized weakness and body aches. Denied chest pain or palpitations. No other acute complaints reported. Patient was admitted for further care and pulmonary consultation is requested for evaluation and management of acute on chronic hypoxic respiratory failure and COPD exacerbation. Review of Systems: 14-point review of systems negative unless otherwise noted above. Past Medical History: COPD, diabetes mellitus, dyslipidemia hypertension, CHF, asthma Past Surgical History: Tonsillectomy, hysterectomy and left shoulder surgery Medications: Reviewed. Allergies: No known drug allergies. Family History: Brain tumor, cancer, dementia, melanoma. Social History: Smoker, <1 pack per day Occasional alcohol use. No illicit drug use. Family History: FH: brain tumor G8 BROTHER FH: cancer G8 MOTHER, G8 SISTER FH: dementia G8 FATHER, FH: melanoma G8 BROTHER G8 BROTHER Allergies: Coded Allergies: No Known Drug Allergy (Verified Allergy, Unknown, 03/06/22) Home Meds Active Scripts Methylprednisolone (Medrol Dosepak) 4 Mg Quentin, 4 MG PO UD, #21 TAB UAD Prov:PRATEEK MARTINES MD 07/13/24 Doxycycline Monohydrate (Doxycycline Monohydrate) 100 Mg Cap, 1 CAP PO BID, #14 CAP Prov:PRATEEK MARTINES MD 07/13/24 Reported Medications Loratadine (Claritin) 10 Mg Tab, 1 TAB PO DAILY, TAB 07/12/24 Ibuprofen (Advil) 200 Mg Tab, 2 TAB PO HS, TAB 07/12/24 Tramadol Hcl (Tramadol Hcl) 50 Mg Tab, 1 TAB PO TID PRN for PAIN 07/12/24 Montelukast Sodium (MONTELUKAST SODIUM) 10 Mg Tab, 1 TAB PO DAILY 07/12/24 Furosemide (Furosemide) 40 Mg Tab, 1 TAB PO DAILY 07/12/24 Simvastatin (Simvastatin) 80 Mg Tab, 0.5 TAB PO DAILY, TAB 07/12/24 Metoprolol Tartrate (Lopressor) 25 Mg Tb, 0.5 TAB PO BID 07/12/24 Fenofibrate (Fenofibrate Micronized) 200 Mg Cap, 1 CAP PO DAILY 07/12/24 Levothyroxine Sodium (SYNTHROID TABLET) 50 Mcg Tb, 50 MCG PO DAILY, TAB 07/12/24 Gabapentin (Gabapentin) 100 Mg Cap, 400 MG PO DAILY 07/12/24 Tirzepatide (Mounjaro) 5 Mg/0.5 Ml Inj, 2.5 MG SC QWEEKLY 07/12/24 Mepolizumab (Nucala) 100 Mg/Ml Inj, SC 07/12/24 Romosozumab-Aqqg (Evenity) 105 Mg/1.17 Ml Inj, SC 07/12/24 Current Medications Current Medications Medications (Trade) Dose Ordered Sig/Scot Route PRN Reason Start Time Stop Time Status Last Admin Aspirin 81 mg DAILY PO 07/12/24 10:00 07/12/24 10:15 Metoprolol Succinate (Toprol Xl) 25 mg DAILY PO 07/12/24 10:00 07/12/24 10:14 Azithromycin 250 ml @ 125 mls/hr DAILY IV 07/12/24 10:00 07/12/24 12:19 DC Enoxaparin Sodium (Lovenox) 40 mg DAILY SC 07/12/24 10:00 07/12/24 10:17 Nicotine (Nicoderm 14MG/ 24HR) 1 patch DAILY@2100 TD 07/12/24 21:00 07/12/24 21:02 Furosemide (Lasix Injection) 40 mg BIDD IV 07/12/24 18:00 07/12/24 17:46 Diagnostic Test (Pha) (Accu-Chek Comfort Curve T) 1 strip ACHS 07/12/24 11:30 07/12/24 17:04 Insulin Human Regular (InsuLIN R) HS SC 07/12/24 22:00 Insulin Human Regular (InsuLIN R) AC SC 07/12/24 11:30 Dextrose 50 ml UD PRN IV Blood Sugar LESS THAN 60 07/12/24 08:45 Levothyroxine Sodium (Synthroid Tablet) 50 mcg QAM@0600 PO 07/13/24 06:00 Losartan Potassium (Cozaar Tablet) 50 mg DAILY PO 07/12/24 10:00 07/12/24 10:15 Hydralazine HCl (Apresoline Injection) 10 mg Q6HR IV 07/12/24 12:00 07/12/24 17:46 Gabapentin (Neurontin Capsule) 400 mg DAILY PO 07/12/24 22:00 07/12/24 21:05 Doxycycline Monohydrate (Vibramycin Tablet) 100 mg Q12HR PO 07/12/24 22:00 07/12/24 21:02 Vital Signs Vital Signs Date Time Temp Pulse Resp B/P (MAP) Pulse Ox O2 Delivery O2 Flow Rate FiO2 07/12/24 20:00 20 92 Nasal Cannula* 6 44 07/12/24 17:46 160/73 07/12/24 17:00 98.2 64 98.2 Physical Exam Gen.: Patient lying in bed in no apparent distress. On supplemental oxygen. Head: Normocephalic, atraumatic. Eyes: EOMI/PERRLA. Ears: Normal hearing. Normal anatomy. Neck/trachea: Trachea midline, supple. Nose: Normal external anatomy. Mouth: Moist mucous membranes. Chest: Decreased air entry bilaterally. No wheezing or rhonchi. Cardiovascular: Positive S1, positive S2. Regular rate and rhythm. Abdomen: Positive bowel sounds in all 4 quadrants. Soft, non-tender, non- distended. : Deferred. Rectal: Deferred. Skin: Warm, dry. Intact. Extremities: 2+ radial pulses bilaterally. No lower extremity edema. Neuro: Awake, alert, oriented x3. No gross motor or sensory deficits. Cranial nerves II through XII intact. Gait not assessed. Labs/Diagnostic Data Labs Test 07/12/24 05:59 07/11/24 19:36 07/11/24 18:34 07/11/24 17:00 Range/Units White Blood Count 3.3 #L 4.4-10.8 10^3/uL Red Blood Count 4.82 4.0-5.20 10^6/uL Hemoglobin 14.9 12.2-16.2 g/dL Hematocrit 43.8 36.0-46.0 % Mean Corpuscular Volume 90.9 80.0-100.0 fL Mean Corpuscular Hemoglobin 31.0 28.0-32.0 pg Mean Corpuscular Hemoglobin Concent 34.1 32.0-36.0 g/dL Red Cell Distribution Width 14.7 H 11.8-14.3 % Platelet Count 203 140-450 10^3/uL Mean Platelet Volume 7.8 6.9-10.8 fL Neutrophils (%) (Auto) 61.8 37.0-80.0 % Lymphocytes (%) (Auto) 28.6 10.0-50.0 % Monocytes (%) (Auto) 9.2 0.0-12.0 % Eosinophils (%) (Auto) 0.0 0.0-7.0 % Basophils (%) (Auto) 0.4 0.0-2.0 % Neutrophils # (Auto) 2.0 1.6-8.6 10 ^3/uL Lymphocytes # (Auto) 0.9 0.4-5.4 10 ^3/uL Monocytes # (Auto) 0.3 0-1.3 10 ^3/uL Eosinophils # (Auto) 0 0-0.8 10 ^3/uL Basophils # (Auto) 0 0-0.2 10 ^3/uL Nucleated Red Blood Cells 0.2 % Sodium Level 143 136-145 mmol/L Potassium Level 4.2 3.5-5.1 mmol/L Chloride Level 103 98-107 mmol/L Carbon Dioxide Level 33 H 20-31 mmol/L Anion Gap 7 5-15 Blood Urea Nitrogen 12 9-23 mg/dL Creatinine 0.51 L 0.550-1.02 mg/dL Glomerular Filtration Rate Calc 101 >90 mL/min BUN/Creatinine Ratio 23.5 H 10.0-20.0 Serum Glucose 145 H 74-106 mg/dL Hemoglobin A1c 6.1 H <5.7 % A1C Calcium Level 8.8 8.7-10.4 mg/dL Magnesium Level 1.8 1.6-2.6 mg/dL Triglycerides Level 75 < 150 mg/dL Cholesterol Level 109 < 200 mg/dL LDL Cholesterol 57 < 100 mg/dL HDL Cholesterol 45 40-59 mg/dL Thyroid Stimulating Hormone (TSH) 0.31 L 0.55-4.78 uIU/mL Free Thyroxine (T4) Calculated 1.28 0.89-1.76 ng/dL Free Triiodothyronine (T3) pg/mL 2.40 2.3-4.2 pg/mL Influenza Type A Antigen Negative Negative Influenza Type B Antigen Negative Negative SARS-CoV-2 Antigen (Rapid) Negative NEGATIVE Urine Color Light-yellow Yellow Urine Clarity Clear Clear Urine pH 6.5 5.0-9.0 Urine Specific [place] 1.007 1.001-1.035 Urine Protein Trace H Negative Urine Ketones Negative Negative Urine Blood Negative Negative /uL Urine Nitrite Negative Negative Urine Bilirubin Negative Negative Urine Urobilinogen Normal Negative mg/dL Urine Leukocyte Esterase 1+ Negative /uL Urine RBC 2 0 - 4 /hpf Urine WBC 5 0 - 5 /hpf Urine Squamous Epithelial Cells Few <5 /hpf Urine Bacteria None seen None Seen /hpf Urine Hyaline Casts Few 0 - 2 /lpf Urine Glucose Normal Normal mg/dL Troponin I High Sensitivity 34 </=34 ng/L Test 07/11/24 14:00 Range/Units Lactic Acid Level 0.8 0.4-2.0 mmol/L B-Type Natriuretic Peptide 94.03 0-100 pg/mL Microbiology Date/Time Source Procedure Growth Status 07/11/24 14:10 Blood Blood Culture - Preliminary NO GROWTH AFTER 24 HOURS OF INCUBATION. Resulted Assessment Impression: Acute on chronic hypoxic respiratory failure Dependence on supplemental oxygen CHF exacerbation COPD exacerbation Possible pneumonitis Urinary tract infection Nicotine dependence Plan: Supplemental oxygen 6 LPM NC. Titrate to keep O2 sats above 92%. Taper O2 as tolerated. CXR shows pulmonary vascular congestion. Blood cultures show no growth for 24 hours. Continue bronchodilators. IV steroids Continue antibiotics Montelukast Diurese to euvolemia w/ Lasix Monitor renal function. Monitor electrolytes. Supplement as necessary. Monitor ins and outs. Smoking cessation discussed for greater than 10 minutes DVT prophylaxis. Prognosis: Poor given patient's multiple co-morbidities. Rest of plan per hospitalist and other consultants. Thank you, Dr. Martines, for allowing me to participate in this patient's care. Further recommendations will depend on the patient's clinical course. Please do not hesitate to contact me if you have any questions or concerns. This medical document was created using an electronic medical record system with [employer] dictation system. Although these documentations are being carefully reviewed, there may still be some phonetic and typographical changes. The errors are purely typographical, due to imperfection on the software program, and do not reflect any compromise in the patient's medical care. Plan discussed with: Patient, Other (RN/MD Martines) HERMINIA FAGAN MD Jul 12, 2024 23:12
[2024-07-12] MEDS: TEMAZEPAM 15 MG CAP PO PRN (23:54)
[2024-07-13] VITALS (7 sets, daily range): BP systolic 125–160; BP diastolic 67–78; PULSE 59–63; RESP 16–20; TEMP 36.6; O2SAT 92–97
[2024-07-13] MEDS: LEVOTHYROXINE SODIUM 50 MCG TAB PO SCH (06:04)
[2024-07-13 06:13] LABS: Basophils # (auto) 0 10 ^3/uL (0-0.2); Basophils % (auto) 0.1 % (0.0-2.0); Eosinophils # (auto) 0 10 ^3/uL (0-0.8); Hematocrit 47.4 % (36.0-46.0); Hemoglobin 16.1 g/dL (12.2-16.2); Lymphocytes # (auto) 1.5 10 ^3/uL (0.4-5.4); Lymphocytes % (auto) 20.3 % (10.0-50.0); Mean Corpuscular Hemoglobin 31.5 pg (28.0-32.0); Mean Corpuscular Volume 92.6 fL (80.0-100.0); Monocytes # (auto) 0.7 10 ^3/uL (0-1.3); Monocytes % (auto) 9.3 % (0.0-12.0); Neutrophils # (auto) 5.1 10 ^3/uL (1.6-8.6); Neutrophils % (auto) 70.3 % (37.0-80.0); Nucleated Red Blood Cells % 0.4 %; Platelet Count (auto) 295 10^3/uL (140-450); Red Blood Cells 5.12 10^6/uL (4.0-5.20); Red Cell Distribution Width 15.2 % (11.8-14.3); White Blood Cell 7.2 10^3/uL (4.4-10.8)
[2024-07-13 06:24] LABS: Chloride 102 mmol/L (98-107); Potassium 3.6 mmol/L (3.5-5.1); Sodium 142 mmol/L (136-145)
[2024-07-13 06:25] LABS: Anion Gap 4 (5-15)
[2024-07-13 06:29] LABS: Carbon Dioxide 36 mmol/L (20-31)
[2024-07-13 06:30] LABS: Blood Urea Nitrogen 12 mg/dL (9-23); Triglycerides 103 mg/dL (< 150)
[2024-07-13 06:31] LABS: Glucose 127 mg/dL (74-106); LDL Cholesterol 68 mg/dL (< 100); Magnesium 1.9 mg/dL (1.6-2.6)
[2024-07-13 06:32] LABS: Cholesterol 129 mg/dL (< 200); HDL Cholesterol 50 mg/dL (40-59)
[2024-07-13] MEDS ORDERED: DOXY1CAP57 PO (09:42)
[2024-07-13] MEDS ORDERED: METH4PAK PO (09:42)
[2024-07-13 11:24] LABS: Base Excess 10.2 mmol/L (-2.0-3.0)
--- NOTE | 2024-07-13 11:37 | DVHDS2 ---
Discharge Summary Date of Admission Jul 11, 2024 at 18:53 Date of Discharge: Jul 13, 2024 Labs/Diagnostic Data: Laboratory Results Test 07/13/24 11:10 07/13/24 05:15 07/12/24 05:59 07/11/24 19:36 Blood Gas Specimen Type Arterial Blood Gas Sample Site Left radial Blood Gas Patient Temperature 37.0 Arterial Blood Date Drawn [id number] Arterial Blood pH 7.457 (7.350-7.450) Arterial Blood Partial Pressure CO2 52.5 mmHg (32.0-45.0) Arterial Blood Partial Pressure O2 44.4 mmHg (83.0-108.0) Arterial Blood HCO3 36.2 mmol/L (21.0-28.0) Arterial Blood Oxygen Saturation 81.7 % (94.0-98.0) Arterial Blood Base Excess 10.2 mmol/L (-2.0-3.0) Arterial Blood Oxyhemoglobin 80.8 % (94.0-98.0) Arterial Blood Carboxyhemoglobin 0.8 % (0.5-1.5) Arterial Blood Methemoglobin 0.3 % (0.0-1.5) Afshin Test Yes Blood Gas Total Hemoglobin 16.50 g/dL (12.0-16.0) Blood Gas Modality Room air FiO2 % 21.0 Blood Gas Critical Value Read Back Yes Blood Gas Notified Whom steve Tucker Blood Gas Notified Time [id number] Blood Gas Notified By Dental Equipment Technician larissa tellez White Blood Count 7.2 10^3/uL (4.4-10.8) Red Blood Count 5.12 10^6/uL (4.0-5.20) Hemoglobin 16.1 g/dL (12.2-16.2) Hematocrit 47.4 % (36.0-46.0) Mean Corpuscular Volume 92.6 fL (80.0-100.0) Mean Corpuscular Hemoglobin 31.5 pg (28.0-32.0) Mean Corpuscular Hemoglobin Concent 34.0 g/dL (32.0-36.0) Red Cell Distribution Width 15.2 % (11.8-14.3) Platelet Count 295 10^3/uL (140-450) Mean Platelet Volume 7.6 fL (6.9-10.8) Neutrophils (%) (Auto) 70.3 % (37.0-80.0) Lymphocytes (%) (Auto) 20.3 % (10.0-50.0) Monocytes (%) (Auto) 9.3 % (0.0-12.0) Eosinophils (%) (Auto) 0.0 % (0.0-7.0) Basophils (%) (Auto) 0.1 % (0.0-2.0) Neutrophils # (Auto) 5.1 10 ^3/uL (1.6-8.6) Lymphocytes # (Auto) 1.5 10 ^3/uL (0.4-5.4) Monocytes # (Auto) 0.7 10 ^3/uL (0-1.3) Eosinophils # (Auto) 0 10 ^3/uL (0-0.8) Basophils # (Auto) 0 10 ^3/uL (0-0.2) Nucleated Red Blood Cells 0.4 % Sodium Level 142 mmol/L (136-145) Potassium Level 3.6 mmol/L (3.5-5.1) Chloride Level 102 mmol/L (98-107) Carbon Dioxide Level 36 mmol/L (20-31) Anion Gap 4 (5-15) Blood Urea Nitrogen 12 mg/dL (9-23) Creatinine 0.63 mg/dL (0.550-1.02) Glomerular Filtration Rate Calc 96 mL/min (>90) BUN/Creatinine Ratio 19.0 (10.0-20.0) Serum Glucose 127 mg/dL (74-106) Calcium Level 10.0 mg/dL (8.7-10.4) Magnesium Level 1.9 mg/dL (1.6-2.6) Triglycerides Level 103 mg/dL (< 150) Cholesterol Level 129 mg/dL (< 200) LDL Cholesterol 68 mg/dL (< 100) HDL Cholesterol 50 mg/dL (40-59) Thyroid Stimulating Hormone (TSH) 0.36 uIU/mL (0.55-4.78) Hemoglobin A1c 6.1 % A1C (<5.7) Free Thyroxine (T4) Calculated 1.28 ng/dL (0.89-1.76) Free Triiodothyronine (T3) pg/mL 2.40 pg/mL (2.3-4.2) Influenza Type A Antigen Negative (Negative) Influenza Type B Antigen Negative (Negative) SARS-CoV-2 Antigen (Rapid) Negative (NEGATIVE) Test 07/11/24 18:34 07/11/24 17:00 07/11/24 14:00 Urine Color Light-yellow (Yellow) Urine Clarity Clear (Clear) Urine pH 6.5 (5.0-9.0) Urine Specific [place] 1.007 (1.001-1.035) Urine Protein Trace (Negative) Urine Ketones Negative (Negative) Urine Blood Negative /uL (Negative) Urine Nitrite Negative (Negative) Urine Bilirubin Negative (Negative) Urine Urobilinogen Normal mg/dL (Negative) Urine Leukocyte Esterase 1+ /uL (Negative) Urine RBC 2 /hpf (0 - 4) Urine WBC 5 /hpf (0 - 5) Urine Squamous Epithelial Cells Few /hpf (<5) Urine Bacteria None seen /hpf (None Seen) Urine Hyaline Casts Few /lpf (0 - 2) Urine Glucose Normal mg/dL (Normal) Troponin I High Sensitivity 34 ng/L (</=34) Lactic Acid Level 0.8 mmol/L (0.4-2.0) B-Type Natriuretic Peptide 94.03 pg/mL (0-100) Other Laboratory Tests 07/13/24 05:15 Brief Hx & Hospital Course: 68-year-old female with a history of CHF and COPD and diabetes and hypertension and dyslipidemia came with upper respiratory infection with hypoxia and cough The patient has diastolic heart failure She has COPD She was treated with IV Lasix and steroids and oxygen and med neb treatments and IV antibiotics She was hypoxic, she was given oxygen Today we checked her oxygen on room air and she is still hypoxic and therefore she needs home oxygen Patient otherwise feeling better and therefore she can be discharged home on a course of steroid and doxycycline once the home oxygen is arranged Final diagnoses: Acute hypoxic respiratory failure Congestive heart failure exacerbation, diastolic Hypoxia Acute upper respiratory infection, unspecified Cardiomegaly Pulmonary edema No pneumonia Obesity COPD Hypertension Hypoxemia Mixed hyperlipidemia Type 2 diabetes Follow up with her primary care physician in as soon as possible Condition at Discharge: Stable Final Diagnosis/Problems List Acute hypoxic respiratory failure Hypoxia Congestive heart failure exacerbation, diastolic Acute upper respiratory infection Cardiomegaly Pulmonary edema Rule out pneumonia Obesity COPD Hypertension Hypoxemia Mixed hyperlipidemia Type 2 diabetes Discharge Disposition: Home SNF Discharge Will this Physician continue t: No Discharge Instruct/Medications Diet: Cardiac 2g Na,low cholest Activity: No Restrictions, As Tolerated Follow Up/Referral: PCP TRACY Medications: Medrol dose pack Doxycycline 100 mg bid x 7 days Resume home meds Discharge Statement: "Patient was advised to return to the ER or call 911 if any headaches, dizziness, shortness of breath, chest pain, abdominal pain, bleeding, fevers, or worsening of medical condition. Patient was counseled about treatment plan, medications, possible side effects, patientverbalized understanding. All questions were answered to the best of my ability. This discharge took greater then 30 minutes in planning, reviewing documentation, counseling the patient, and discussing with other team members." ASSESSMENT ASSESSMENT Assessment Acute hypoxic respiratory failure Congestive heart failure exacerbation, diastolic Acute upper respiratory infection Cardiomegaly Pulmonary edema Rule out pneumonia Obesity COPD Hypertension Hypoxemia Mixed hyperlipidemia Type 2 diabetes Date of Service: Jul 13, 2024 Billing Provider: ALEXANDRU AGUAYO MD Common Visit Codes: NOT BILLABLE ALEXANDRU AGUAYO MD Jul 13, 2024 11:36
--- NOTE | 2024-07-13 20:06 | DVHPN2 ---
Progress Note - Dictate Date Seen: Jul 13, 2024 Medical Necessity Reason Pt with a Central, PICC or Fol: No Subjective Patient seen and examined at bedside. Remains on supplemental oxygen Overnight events reviewed. vital signs Vital Sign Date Time Temp Pulse Resp B/P (MAP) Pulse Ox O2 Delivery O2 Flow Rate FiO2 07/13/24 13:00 97.9 60 18 160/78 (105) 96 97.9 07/13/24 08:24 Nasal Cannula* 3 32 Total Intake and Output 07/12/24 07/12/24 07/13/24 15:00 23:00 07:00 Intake Total 1250 ml 200 ml Balance 1250 ml 200 ml objective Gen.: Patient lying in bed in no apparent distress. On supplemental oxygen. Head: Normocephalic, atraumatic. Eyes: EOMI/PERRLA. Ears: Normal hearing. Normal anatomy. Neck/trachea: Trachea midline, supple. Nose: Normal external anatomy. Mouth: Moist mucous membranes. Chest: Decreased air entry bilaterally. No wheezing or rhonchi. Cardiovascular: Positive S1, positive S2. Regular rate and rhythm. Abdomen: Positive bowel sounds in all 4 quadrants. Soft, non-tender, non- distended. : Deferred. Rectal: Deferred. Skin: Warm, dry. Intact. Extremities: 2+ radial pulses bilaterally. No lower extremity edema. Neuro: Awake, alert, oriented x3. No gross motor or sensory deficits. Cranial nerves II through XII intact. Gait not assessed. laboratory and microbiology Laboratory Tests 07/13/24 05:15 Test 07/13/24 05:15 Range/Units Serum Glucose 127 H 74-106 mg/dL Assessment/Plan Impression: Acute on chronic hypoxic respiratory failure Dependence on supplemental oxygen CHF exacerbation COPD exacerbation Possible pneumonitis Urinary tract infection Nicotine dependence Events: Remains on Supplemental oxygen 3 LPM NC. Taper O2 as tolerated. Improving O2 requirements Continue bronchodilators. IV steroids Continue antibiotics Diurese to euvolemia - IV Lasix 40 mg BID Monitor renal function. Monitor ins and outs. Labs and imaging reviewed. Rest of plan as noted below. Plan: Supplemental oxygen Titrate to keep O2 sats above 92%. CXR shows pulmonary vascular congestion. Blood cultures show no growth for 24 hours. Continue bronchodilators. IV steroids Continue antibiotics Diurese to euvolemia w/ Lasix Monitor renal function. Monitor electrolytes. Supplement as necessary. Monitor ins and outs. Smoking cessation discussed for greater than 10 minutes DVT prophylaxis. Prognosis: Poor given patient's multiple co-morbidities. Rest of plan per hospitalist and other consultants. Thank you, Dr. Martines, for allowing me to participate in this patient's care. Further recommendations will depend on the patient's clinical course. Please do not hesitate to contact me if you have any questions or concerns. This medical document was created using an electronic medical record system with [employer] dictation system. Although these documentations are being carefully reviewed, there may still be some phonetic and typographical changes. The errors are purely typographical, due to imperfection on the software program, and do not reflect any compromise in the patient's medical care. Plan discussed with: Patient, Other (CARRINGTON Cordon) HERMINIA FAAGN MD Jul 13, 2024 20:06
== END 2024-07-13 14:45 | disposition home or self-care (01) | DRG 280 ==
LOC: ER 13:33 → TELE 18:53 → TELE-CENTR 18:59 → CENTRAL 07-13 04:48
PROVIDERS: ADMIT Nurse Practitioner; ATTEND Internal Medicine Geriatric Medicine
DX: I11.0 Hypertensive heart disease with heart failure (principal); I50.33 Acute on chronic diastolic (congestive) heart failure; I21.A1 Myocardial infarction type 2; J96.21 Acute and chronic respiratory failure with hypoxia; J44.1 Chronic obstructive pulmonary disease with (acute) exacerbation; N39.0 Urinary tract infection, site not specified; E11.9 Type 2 diabetes mellitus without complications; J06.9 Acute upper respiratory infection, unspecified; F17.210 Nicotine dependence, cigarettes, uncomplicated; Z20.822 Contact with and (suspected) exposure to COVID-19; E78.2 Mixed hyperlipidemia; E07.9 Disorder of thyroid, unspecified; E66.01 Morbid (severe) obesity due to excess calories; Z90.710 Acquired absence of both cervix and uterus; Z80.8 Family history of malignant neoplasm of other organs or systems; Z99.81 Dependence on supplemental oxygen; Z71.6 Tobacco abuse counseling; Z68.35 Body mass index [BMI] 35.0-35.9, adult
CPT/HCPCS: 36415; 36600; 71045; 80048; 80061; 81001; 82805; 82962; 83036; 83605; 83735; 83880; 84439; 84443; 84481; 84484; 85025; 87040; 87426; 87804; 93005; 93306; 94640; 99291; G0378